=== PATIENT | male | born 1995 | race Caucasian/White ===

== ENCOUNTER 2025-06-25 15:43 | Emergency (ER) | payer SELFPAY ==
[2025-06-25 15:44] VITALS: BMI 41.5
[2025-06-25 15:56] VITALS: BP 175/93; PULSE 86; RESP 18; TEMP 36.8; O2SAT 99
--- NOTE | 2025-06-25 16:07 | EKG_ITS ---
[facility] Test Date: 2025-06-25 Pat Name: PAULA OCONNOR Department: Room: - Gender: Male [employer]: : 1995 Requested By: Juve Duffy Order Number: [id number] Reading MD: Juve Duffy Measurements Intervals [place] Rate: 74 P: 55 NC: 153 QRS: 12 QRSD: 96 T: 7 QT: 356 QTc: 396 Interpretive Statements SINUS RHYTHM No previous ECG available for comparison /store/S0/[id number].pdf
--- NOTE | 2025-06-25 16:08 | PD.EDADULT ---
ED General RME/HPI General Chief complaint: General Adult/Misc Complain Stated complaint: DIZZY/SOB, B/P HIGH TODAY Time Seen by Provider: 06/25/25 15:50 Source: patient Arrival date/time: 06/25/25 15:43 30-year-old male with no known medical history presents to the emergency room with a chief complaint of dizziness, lightheadedness, and an elevated blood pressure reading x 2 days Mode of arrival: ambulatory Limitations: no limitations Related Data Allergies Allergy/AdvReac Type Severity Reaction Status Date / Time amoxicillin Allergy Severe RASH Verified 06/25/25 15:46 Review of Systems Review of Systems Systems Reviewed: All systems reviewed, normal except as documented Constitutional Constitutional: Reports system reviewed and no additional complaints, except as documented, Denies fatigue, Denies fever(s), Denies headache(s) and Denies weakness Eyes Eyes: Reports system reviewed and no additional complaints, except as documented, Denies blurry vision and Denies change in vision ENT Ears, Nose, Mouth, and Throat: Reports system reviewed and no additional complaints, except as documented, Denies otalgia, Denies headache(s), Denies nasal congestion, Denies throat swelling and Denies vertigo Cardiovascular Cardiovascular: Reports system reviewed and no additional complaints, except as documented, Denies chest pain, Denies dyspnea, Denies dyspnea on exertion and Reports palpitations Respiratory Respiratory: Reports system reviewed and no additional complaints, except as documented, Denies chest congestion, Denies cough, Denies dyspnea, Denies dyspnea on exertion and Denies wheezing Gastrointestinal Gastrointestinal: Reports system reviewed and no additional complaints, except as documented, Denies abdominal pain, Denies cramping, Denies nausea and Denies vomiting Genitourinary Genitourinary: Reports system reviewed and no additional complaints, except as documented, Denies dysuria and Denies hematuria Musculoskeletal Musculoskeletal: Reports system reviewed and no additional complaints, except as documented and Denies back pain Integumentary/Breasts Skin/Breast: Reports system reviewed and no additional complaints, except as documented and Denies wounds Neurologic Neurologic: Reports system reviewed and no additional complaints, except as documented, Denies confusion, Denies headache(s), Denies lack of coordination, Denies vertigo and Denies weakness Psychiatric Psychiatric: Reports system reviewed and no additional complaints, except as documented, Denies anxiety, Denies confusion, Denies depression, Denies paranoia, Denies suicidal ideation and Denies tactile hallucinations Endocrine Endocrine: Reports system reviewed and no additional complaints, except as documented, Denies fatigue and Reports palpitations Hematologic/Lymphatic Hematologic/Lymphatic: Reports system reviewed and no additional complaints, except as documented and Denies lymphadenopathy Allergic/Immunologic Allergic/Immunologic: Reports system reviewed and no additional complaints, except as documented, Denies throat swelling, Denies urticaria and Denies wheezing Past Medical History Social History SMOKING STATUS: Never smoker ED Exam General Limitations: Present no limitations General appearance: Present alert and in no apparent distress Head Head exam: Present atraumatic Eye Eye exam: Present normal appearance, PERRL and EOMI ENT ENT exam: Present normal exam, normal oropharynx and mucous membranes moist Neck Neck exam: Present normal inspection, full ROM and trachea midline Chest Chest inspection: Present normal inspection and symmetric chest wall rise Respiratory Respiratory exam: Present normal lung sounds bilaterally Cardiovascular Cardiovascular exam: Present regular rate, normal rhythm, normal heart sounds, +S1 and +S2; Absent bradycardia, tachycardia, irregular rhythm, systolic murmur, diastolic murmur, rubs, gallop, clicks or JVD Abdominal Exam Abdominal exam: Present soft and normal bowel sounds Extremities Exam Extremities exam: Present normal inspection and full ROM Back Exam Back exam: Present normal inspection and full ROM Neurological Exam Neurological exam: Present alert, oriented X3, CN II-XII intact, normal gait and reflexes normal Expanded Neurological Exam Patient oriented to: Present person, place and time Speech: Present fluid speech Cranial nerves: Normal: EOM function (II, III, IV, ) Cerebellar function: Present normal gait Motor strength - LUE: 5/5 Motor strength - RUE: 5/5 Motor strength - LLE: 5/5 Motor strength - RLE: 5/5 Psychiatric Psychiatric exam: Present normal affect and normal mood Skin Skin exam: Present warm, dry, intact and normal color Course Quality Measures none Orders Category Date Time Status EKG (ED ONLY) *Do not use* NOW Care 06/25/25 16:07 Active EKG (ED Only) Stat Exams 06/25/25 16:07 Ordered B-Type Natriuretic Peptide Stat Lab 06/25/25 16:07 Ordered CBC Stat Lab 06/25/25 16:07 Ordered Comprehensive Metabolic Panel Stat Lab 06/25/25 16:07 Ordered Drug Screen,Urine Stat Lab 06/25/25 16:07 Ordered Free T4 (Free Thyroxine) Stat Lab 06/25/25 16:07 Ordered Magnesium Stat Lab 06/25/25 16:07 Ordered Partial Thromboplastin Time Stat Lab 06/25/25 16:07 Ordered Prothrombin Time with INR Stat Lab 06/25/25 16:07 Ordered TSH [Thyroid Stimulating Hormone] Stat Lab 06/25/25 16:07 Ordered Troponin I Stat Lab 06/25/25 16:07 Ordered Urinalysis, C/S if Indicated Stat Lab 06/25/25 16:07 Ordered cloNIDine HCL [Catapres] Med 06/25/25 16:07 Discontinued 0.1 mg PO X1 ONE Vital Signs Vital signs: Vital Signs Temperature 98.2 F 06/25/25 15:56 Pulse Rate 86 06/25/25 15:56 Respiratory Rate 18 06/25/25 15:56 Blood Pressure 175/93 H 06/25/25 15:56 Pulse Oximetry (%) 99 06/25/25 15:56 Oxygen Delivery Method Room Air 06/25/25 15:56 Discharge Plan Patient/Caregiver Discharge Instructions Print Language: Upper Sorbian MDM Narrative MDM hospital course (for use when minimal MDM required): 30-year-old male with no known medical history presents to the emergency room with a chief complaint of dizziness, lightheadedness, and an elevated blood pressure reading x 2 days Clinical Information Provided by: patient Medical Records reviewed None Meds/Rx considered, not ordered None Labs/Rad/Tests considered, not ordered None Chronic Illness/Social Conditions which may negatively complicate care or outcome(s)-explain: None or not applicable Medication Administration(s) Medication Administration History Discontinued Medications Clonidine (Clonidine Hcl 0.1 Mg Tablet) 0.1 mg PO X1 ONE Stop: 06/25/25 16:08
[2025-06-25 16:16] VITALS: BP 189/133; PULSE 87
[2025-06-25 16:58] LABS: Collection Type, Urine Clean Catch; Squamous Epithelial Cell,Urine 0 /hpf (0-5)
[2025-06-25 17:01] LABS: Basophils # (Auto) 0.1 Thou/mm3 (0.0-0.2); Basophils % (Auto) 1 % (0-2.5); Eosinophils # (Auto) 0.2 Thou/mm3 (0.0-0.5); Eosinophils % (Auto) 3 % (0-10); Hematocrit 47.8 % (41.0-53.0); Hemoglobin 16.0 g/dL (13.5-16.0); Immature Granulocytes Auto 0.04 Thou/mm3 (0.00-0.00); Lymphocytes # (Auto) 2.3 Thou/mm3 (1.0-4.8); Lymphocytes % (Auto) 29 % (10-50); Mean Corpuscular HGB Conc 33.5 g/dl (31.0-37.0); Mean Corpuscular Hemoglobin 29.0 pg (25.0-35.0); Mean Corpuscular Volume 87 fL (80-100); Monocytes # (Auto) 0.6 Thou/mm3 (0.0-0.8); Monocytes % (Auto) 8 % (0-12); Neutrophils # (Auto) 4.7 Thou/mm3 (1.8-7.7); Neutrophils % (Auto) 59 % (37-80); Nucleated Red Blood Cell # 0.00 Thou/mm3 (0.00-0.00); Nucleated Red Blood Cell % 0 /100 WBC (0); Platelet Count 297 Thou/mm3 (140-440); RDW Standard Deviation 42.0 fL (35.1-43.9); Red Blood Count 5.52 Miln/mm3 (4.50-5.90); White Blood Count 7.9 Thou/mm3 (3.8-10.6)
[2025-06-25 17:33] LABS: B-Type Natriuretic Peptide < 20 pg/mL (0-100)
--- NOTE | 2025-06-25 17:36 | PD.EDRME ---
Rapid Medical Screening Exam E Arrival date/time: 06/25/25 15:43 30-year-old male with no known medical history presents to the emergency room with a chief complaint of dizziness, lightheadedness, and an elevated blood pressure reading x 2 days I have greeted and performed a focused initial assessment of this patient. A comprehensive ED assessment and evaluation of the patient, analysis of all test results, and completion of the medical decision making process will be conducted by additional ED providers. Chief Complaint: General Adult/Misc Complain Time Seen by Provider: 06/25/25 15:50 Vital signs: Vital Signs Temperature 98.2 F 06/25/25 15:56 Pulse Rate 86 06/25/25 15:56 Respiratory Rate 18 06/25/25 15:56 Blood Pressure 175/93 H 06/25/25 15:56 Pulse Oximetry (%) 99 06/25/25 15:56 Oxygen Delivery Method Room Air 06/25/25 15:56 Vital signs reviewed by provider: Yes Exam: Strong and regular rhythm S1 and S2 noted. Clear bilateral lung sounds Clinical Impression: STEMI/NSTEMI/anemia/asymptomatic hypertensive urgency
[2025-06-25 17:38] LABS: Amorphous Crystals,Urine Present (Absent); Bilirubin,Urine Negative (Negative); Blood,Urine Negative (Negative); Clarity,Urine Clear (Clear/Hazy); Color,Urine Yellow (Lt Yel-Yel); Culture Indicated,Urine Not Indicated; Glucose, Urine Negative (Negative); Ketones,Urine Negative (Negative); Leukocyte Esterase,Urine Negative (Negative); Nitrite,Urine Negative (Negative); PH,Urine 8.0 (5.0-7.0); Protein,Urine Trace (Neg - Trace); RBC,Urine 5 /hpf (0-3); Specific Gravity,Urine 1.028 (1.001-1.035); Urobilinogen,Urine Negative mg/dL (0.0-1.0); WBC,Urine < 1 /hpf (0-5)
[2025-06-25 17:38] LABS: Alanine Aminotransferase 44 U/L (10-49); Albumin, Serum 4.9 gm/dL (3.5-5.0); Albumin/Globulin Ratio 2.1 (1.2-2.2); Alkaline Phosphatase 59 U/L (46-116); Anion Gap 5 (7-16); Aspartate Amino Transferase 41 U/L (0-34); BUN/Creatinine Ratio 8 Ratio (12-20); Bilirubin,Total 0.5 mg/dL (0.3-1.2); Blood Urea Nitrogen 8 mg/dL (9-23); Calcium 9.7 mg/dL (8.3-10.6); Calcium (Corrected) 9.7 mg/dL (8.5-10.1); Carbon Dioxide 32.6 mMol/L (20.0-31.0); Chloride 101 mMol/L (98-107); Creatinine (Component) 1.0 mg/dL (0.6-1.3); Estimated Creatinine Clearance 144.6 mL/min (>60); Free T4 (Free Thyroxine) 1.17 ng/dL (0.89-1.76); Globulin 2.3 gm/dL (2.3-3.5); Glucose 77 mg/dL (74-106); Magnesium 2.2 mg/dL (1.6-2.6); Osmolality,Calculated 274 (275-295); Potassium 4.1 mMol/L (3.4-5.1); Sodium 139 mMol/L (136-145); Thyroid Stimulating Hormone 2.15 uIU/mL (0.55-4.78); Total Protein 7.2 gm/dL (5.7-8.2); Troponin I < 0.002 ng/mL (0.0-0.045); eGFR > 60 See Note
[2025-06-25 17:43] LABS: INR 1.0 (0.9-1.3); Partial Thromboplastin Time 29.6 Seconds (22.0-36.0); Prothrombin Time 10.8 Seconds (9.0-12.2)
[2025-06-25 17:53] LABS: Amphetamine/Methamp Scrn,U Negative (Negative); Barbiturate Screen,Urine Negative (Negative); Benzodiazepines Screen,Urine Negative (Negative); Benzoylecgonine Screen, Ur Negative (Negative); Fentanyl Screen,Urine Negative (Negative); Opiate Screen,Urine Negative (Negative); THC Screen,Urine Positive (Negative)
[2025-06-25 19:00] VITALS: BP 139/96; PULSE 89; RESP 18; TEMP 36.9; O2SAT 99
[2025-06-25 19:59] VITALS: BP 157/97; PULSE 76; RESP 18; TEMP 36.8; O2SAT 96
--- NOTE | 2025-06-25 20:08 | PD.EDADULT ---
ED General RME/HPI General Chief complaint: General Adult/Misc Complain Stated complaint: DIZZY/SOB, B/P HIGH TODAY Time Seen by Provider: 06/25/25 15:50 Arrival date/time: 06/25/25 15:43 CC: Mild headache mild dizziness HPI ongoing for the past 8 months, the patient admits that he takes preworkout creatinine is in powder form as well as heavy workouts. The patient has no primary care doctor as he has no insurance and is concerned about his pressures being high. Patient denies chest pain shortness of breath difficulty breathing nausea vomiting or diarrhea. RME / HPI RME / HPI narrative: 06/25/25 15:43 30-year-old male with no known medical history presents to the emergency room with a chief complaint of dizziness, lightheadedness, and an elevated blood pressure reading x 2 days I have greeted and performed a focused initial assessment of this patient. A comprehensive ED assessment and evaluation of the patient, analysis of all test results, and completion of the medical decision making process will be conducted by additional ED providers. Exam: Strong and regular rhythm S1 and S2 noted. Clear bilateral lung sounds Impression: STEMI/NSTEMI/anemia/asymptomatic hypertensive urgency Related Data Previous Rx's ?Medication ?Instructions ?Recorded hydrochlorothiazide 12.5 mg tablet 12.5 mg PO QAM #30 tabs 06/25/25 Allergies Allergy/AdvReac Type Severity Reaction Status Date / Time amoxicillin Allergy Severe RASH Verified 06/25/25 15:46 Review of Systems Review of Systems Narrative Review of Systems: GEN: No fever, no chills, no weight loss EYES: No discharge, no visual changes, no pain HEENT: No ear pain, no congestion, no sore throat PULM: No shortness of breath, no cough, no congestion CV: No chest pain, no dyspnea on exertion, no palpitations GI: No nausea, no vomiting, no diarrhea, no pain, no constipation : No frequency, no urgency, no dysuria MUSC/SKEL: No joint pain, no back pain SKIN: No rash PSYCH: No hallucinations, no depression HEME/LYMPH: No easy bleeding or bruising tendencies NEURO: No weakness, + headache Past Medical History Social History SMOKING STATUS: Never smoker ED Exam Narrative Physical exam: [General: Muscular, not in any acute distress Head normocephalic HEENT: Eyes pupils are PERRLA EOMs are intact mouth pink moist membranes uvula is midline swallow symmetrical phonation is normal all of the subsystems of HEENT are within acceptable limits Neck is supple nontender no JVD no edema Chest equal chest rise nontender to palpation Respiratory: Clear to auscultation no wheezes crackles or rubs CV: Rate rhythm is regular no murmurs rubs or clicks Abdomen is soft nontender no masses positive bowel sounds all 4 quadrants Back: No CVA tenderness no spinous process tenderness from cervical spine thoracic and lumbar spine Skin: Intact no petechiae rash induration ulceration or crepitus Extremities: Moving all extremity against resistance cap refill less than 2 seconds neurosensory intact Neuro: Awake alert oriented x3 Glascow coma 15 no focal deficits] Course Course Course Narrative: Patient's diastolic pressures are consistently elevated throughout his visit the emergency room at this time the patient be started on hydrochlorothiazide and he is to follow-up with a primary care doctor or urgent care for refill. Patient is advised to monitor his blood pressure twice a week for 8 weeks. Patient is to avoid salts. No signs of endorgan damage. Quality Measures none Orders Category Date Time Status EKG (ED ONLY) *Do not use* NOW Care 06/25/25 16:07 Completed EKG (ED Only) Stat Exams 06/25/25 16:07 Ordered B-Type Natriuretic Peptide Stat Lab 06/25/25 16:32 Completed CBC Stat Lab 06/25/25 16:32 Completed Comprehensive Metabolic Panel Stat Lab 06/25/25 16:32 Completed Drug Screen,Urine Stat Lab 06/25/25 16:40 Completed Free T4 (Free Thyroxine) Stat Lab 06/25/25 16:32 Completed Magnesium Stat Lab 06/25/25 16:32 Completed Partial Thromboplastin Time Stat Lab 06/25/25 16:32 Completed Prothrombin Time with INR Stat Lab 06/25/25 16:32 Completed TSH [Thyroid Stimulating Hormone] Stat Lab 06/25/25 16:32 Completed Troponin I Stat Lab 06/25/25 16:32 Completed Urinalysis, C/S if Indicated Stat Lab 06/25/25 16:40 Completed cloNIDine HCL [Catapres] Med 06/25/25 16:07 Discontinued 0.1 mg PO X1 ONE Vital Signs Vital signs: Vital Signs Temperature 98.2 F 06/25/25 15:56 Pulse Rate 86 06/25/25 15:56 Respiratory Rate 18 06/25/25 15:56 Blood Pressure 175/93 H 06/25/25 15:56 Pulse Oximetry (%) 99 06/25/25 15:56 Oxygen Delivery Method Room Air 06/25/25 15:56 Discharge Plan Plan Patient Disposition: HOME (Self Care) Patient condition on transfer: Stable Prescriptions/Referrals Prescriptions/Med Rec: New hydrochlorothiazide 12.5 mg tablet 12.5 mg PO QAM Qty: 30 1RF Referrals: Maximiliano Rivera([facility])MD [Primary Care Provider, Family Practice] - In 1 week Problem List Clinical Impression: Hypertension Patient/Caregiver Discharge Instructions Education Materials: Controlling High Blood Pressure, Blood Pressure Check Steps Additional Instructions: 1. Avoid salt 2. Check your blood pressure twice a week and write it down for the next 8 weeks 3. Take the medication prescribed on a regular basis 4: Avoid creatinine powders in your workouts 5: Follow-up with a primary care doctor when available get refills as necessary. If there is a worsening of your symptoms in spite of the medications return the emergency room for reevaluation. Print Language: Bruneian Stand Alone Forms: [email or web address] Award Info., Patient Portal Info Letter, Work/School Release PA/AIR BRUSH OPERATOR Supervising Physician PA/AIR BRUSH OPERATOR Supervising Physician: Perry Ayers ENP [facility] Clinical Information Provided by: patient Medical Records reviewed [facility] Meds/Rx considered, not ordered None Labs/Rad/Tests considered, not ordered None Chronic Illness/Social Conditions which may negatively complicate care or outcome(s)-explain: None or not applicable Explain: Patient uses preworkout creatinine powder on a regular basis. EKG Interpretation EKG #1: EKG Interpretation: EKG performed at 1617 shows a ventricular rate of 74 TN interval 153 QRS of 96 QTc of 3 3 this normal sinus rhythm. Labs Labs: interpreted by [place] Lab(s) Interpretation(s): CBC shows no acute leukocytosis anemia thrombocytopenia Coags within excepted limits CMP shows no significant electrolyte imbalances the CO2 of 32.6 with a gap of 5. No transaminitis or T. bili elevation Troponin and BNP are within acceptable limits TSH and free T4 within acceptable limits Urine is negative for UTI UDS positive for THC. Imaging Imaging interpretation: none Medication Administration(s) Medication Administration History Discontinued Medications Clonidine (Clonidine Hcl 0.1 Mg Tablet) 0.1 mg PO X1 ONE Stop: 06/25/25 16:08 Last Admin: 06/25/25 16:16 Dose: 0.1 mg Documented By: NARDA
== END 2025-06-25 20:25 | disposition home or self-care (01) ==
PROVIDERS: Nurse Practitioner Family; Emergency Provider Emergency Medicine; PCP Family Medicine
DX: I16.0 Hypertensive urgency (principal); D64.9 Anemia, unspecified; I10 Essential (primary) hypertension; Z59.71 Insufficient health insurance coverage
CPT/HCPCS: 36415; 80053; 80307; 81001; 83735; 83880; 84439; 84443; 84484; 85025; 85610; 85730; 93005; 99283; A9270